=== PATIENT | female | born 1955 | race Caucasian/White ===

== ENCOUNTER → 2025-01-03 | Outpatient (CLI) | payer OTHER, SELFPAY ==
--- NOTE | 2025-01-03 09:48 | XR_ITS ---
Examination: Bilateral hands, 6 views. Technique: AP, Oblique, Lateral each hand total 6 views Date and time of exam: January 03, 2025 1004 hours INDICATIONS: Injury to the left hand fourth digit one year ago with bilateral hand pain Findings: Prominent osteopenia Healed fracture distal right radius with satisfactory alignment Ununited ulnar styloid tip fracture on the right Moderate diffuse narrowing joints of the wrists and hands bilaterally No erosive arthritis involving right hand Significant arthritic change involving the interphalangeal joints left hand especially proximal interphalangeal joints second third and fourth digits as well as interphalangeal joint first digit, partially erosive in nature No fractures IMPRESSION: Arthritic change as above, most prominent involving the left proximal interphalangeal joints second third and fourth digits and interphalangeal joint left first digit
--- NOTE | 2025-01-03 09:48 | XR_ITS ---
Examination: Bilateral wrists 6 views TECHNIQUE: AP oblique lateral each wrist total 6 views Date and time: January 03, 2025 1010 hours INDICATIONS: Injury to left hand fourth digit one year ago with hand and wrist pain, wrist surgery on the right 2007 FINDINGS: Healed fracture distal right radial metaphysis with satisfactory alignment Mild to moderate osteoarthritis bilateral radiocarpal intercarpal and carpometacarpal joints, most prominent involving the first carpometacarpal joints bilaterally. No erosive arthritis IMPRESSION: Healed fracture distal right radial metaphysis with satisfactory alignment Osteoarthritis as above
== END | disposition home or self-care (01) ==
LOC: CDIM 09:24
PROVIDERS: PCP Family Medicine; Referring Provider Nurse Practitioner Gerontology; Visit Provider Nurse Practitioner Gerontology
DX: M13.842 Other specified arthritis, left hand (principal); M79.641 Pain in right hand; M19.032 Primary osteoarthritis, left wrist; M19.031 Primary osteoarthritis, right wrist; Z87.81 Personal history of (healed) traumatic fracture
CPT/HCPCS: 73110; 73130

== ENCOUNTER → 2025-05-08 | Outpatient (CLI) | payer OTHER, SELFPAY ==
--- NOTE | 2025-05-08 | XR_ITS ---
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
== END | disposition home or self-care (01) ==
PROVIDERS: Referring Provider Nurse Practitioner Gerontology; Visit Provider Nurse Practitioner Gerontology
DX: M19.042 Primary osteoarthritis, left hand (principal)
CPT/HCPCS: 73130